=== PATIENT | male | born 1980 | race African-American/Black ===

== ENCOUNTER 2016-06-03 09:14 | Emergency (ER) | payer OTHER ==
[2016-06-03] MEDS ORDERED: IBUPROFEN 800 MG TABLET PO ONE (09:40)
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
[2016-06-03 10:44] VITALS: BP 118/67
== END 2016-06-03 10:45 | disposition home or self-care (01) ==
LOC: ER 09:14
DX: M79.641 Pain in right hand (principal); M54.5 Low back pain; V53.5XXA Driver of pick-up truck or van injured in collision with car, pick-up truck or van in traffic accident, initial encounter
CPT/HCPCS: 99283